=== PATIENT | male | born 1995 | race Two or more races ===

== ENCOUNTER 2020-02-10 05:50 | Emergency (ER) | payer SELFPAY ==
[~2020-02-10] VITALS: Ht 170.2 cm; Wt 65.8 kg
--- NOTE | 2020-02-10 05:50 | NUR ---
ED Nurse Note: pt MARINA DUNNE [phone] from a [employer] c/o [employer]. EMS report that pt called them from a payphone, pt has had the [employer] for 3 days, also states he was nauseated. when asked where in his head the px is located, pt holds up 3 fingers, cannot locate where pain is in his head. pt repeatedly steps out of room asking for various things such as a "sleep injection" and asking if he can leave yet. he follows commands but does not seem to answer questions coherently at this time
[2020-02-10 05:53] VITALS: BP 132/98
--- NOTE | 2020-02-10 06:08 | Emergency Room Report ---
History of Present Illness General Chief Complaint: Headache Source: Patient Present Illness HPI Disclaimer: Please note that this report is being documented using DRAGON technology. This can lead to erroneous entry secondary to incorrect interpretation by the dictating instrument. HPI: 24-year-old male presents for evaluation of headache. Patient complains of 2 days throbbing headache and reports a history of migraines but does not take any medications for migraines. He states he has been drinking champagne over the past few days. Reports a history of methamphetamine use but denies any recently. Denies vomiting, vision changes, loss of consciousness, head trauma. 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 EOMI. PERRLA. Noninjected sclera. Dry mucous membranes Cardiovascular: RRR. S1 and S2 normal. No murmur appreciated Resp: Normal work of breathing. Abdomen: Abdomen is soft, nondistended. Nontender MSK: Normal tone and bulk. Moving all extremities. No obvious deformity. Ambulating with steady gait Neuro: Awake and alert. Mentating appropriately. Medical Decision Making Diagnostic Impression: Primary Impression: Headache Additional Impression: Eloped from emergency department ER Course 24-year-old male presents for evaluation of headache. He reports recent alcohol use. Differential includes but not limited to generalized headache, dehydration, migraine, cluster headache, tension headache. He admits to recent alcohol use may be hangover or dehydration. Provide IV fluids and analgesics. Will obtain old work to screen for electrolyte, metabolic and infectious abnormalities. Will also send tox screen as well as blood alcohol level. 0700: Patient eloped from the emergency department prior to my reevaluation and discussing lab work. Labs have returned within normal limits but patient did not provide urine. Laboratory Tests Test 02/10/20 06:10 White Blood Count 9.3 K/UL (4.8-10.8) Red Blood Count 4.89 M/UL (4.70-6.10) Hemoglobin 14.8 G/DL (14.2-18.0) Hematocrit 45.7 % (42.0-52.0) Mean Corpuscular Volume 94 FL (80-99) Mean Corpuscular Hemoglobin 30.3 PG (27.0-31.0) Mean Corpuscular Hemoglobin Concent 32.4 G/DL (32.0-36.0) Red Cell Distribution Width 12.0 % (11.6-14.8) Platelet Count 266 K/UL (150-450) Mean Platelet Volume 8.3 FL (6.5-10.1) Neutrophils (%) (Auto) 62.1 % (45.0-75.0) Lymphocytes (%) (Auto) 20.8 % (20.0-45.0) Monocytes (%) (Auto) 11.5 % (1.0-10.0) H Eosinophils (%) (Auto) 4.0 % (0.0-3.0) H Basophils (%) (Auto) 1.6 % (0.0-2.0) Sodium Level 138 MMOL/L (136-145) Potassium Level 3.9 MMOL/L (3.5-5.1) Chloride Level 103 MMOL/L (98-107) Carbon Dioxide Level 27 MMOL/L (21-32) Anion Gap 8 mmol/L (5-15) Blood Urea Nitrogen 15 mg/dL (7-18) Creatinine 1.2 MG/DL (0.55-1.30) Estimated Glomerular Filtration Rate > 60 mL/min (>60) Glucose Level 102 MG/DL (74-106) Calcium Level 8.5 MG/DL (8.5-10.1) Total Bilirubin 0.2 MG/DL (0.2-1.0) Aspartate Amino Transferase (AST) 19 U/L (15-37) Alanine Aminotransferase (ALT) 25 U/L (12-78) Alkaline Phosphatase 80 U/L (46-116) Total Protein 7.9 G/DL (6.4-8.2) Albumin 4.0 G/DL (3.4-5.0) Globulin 3.9 g/dL Albumin/Globulin Ratio 1.0 (1.0-2.7) Salicylates Level 3.8 ug/mL (2.8-20) Acetaminophen Level < 2 MCG/ML (10-30) L Serum Alcohol < 3 mg/dL Last Vital Signs Date Time Temp Pulse Resp B/P (MAP) Pulse Ox O2 Delivery O2 Flow Rate FiO2 02/10/20 05:53 98.6 73 15 132/98 98 Room Air Disposition: ELOPED Condition: Stable Franky Peoples MD Feb 10, 2020 06:08
[2020-02-10] MEDS ORDERED: Acetaminophen 500mg (ES) tab ORAL ONE (06:15)
[2020-02-10 06:30] VITALS: BP 132/98
--- NOTE | 2020-02-10 06:30 | NUR ---
ED Nurse Note: pt stated at this time that he would like to leave. pt was informed that he would be sigining out AMA, risks of leaving before fully being treated were explained to pt. he verablized understanding and still wishes to leave. pt signed AMA paperwork, IV line was removed without complications and he left with all of his belongings
[2020-02-10 06:33] LABS: ANION GAP 8 mmol/L (5-15); BLOOD UREA NITROGEN 15 mg/dL (7-18); CALCIUM 8.5 MG/DL (8.5-10.1); CARBON DIOXIDE 27 MMOL/L (21-32); CHLORIDE 103 MMOL/L (98-107); CREATININE 1.2 MG/DL (0.55-1.30); POTASSIUM 3.9 MMOL/L (3.5-5.1); SODIUM 138 MMOL/L (136-145)
[2020-02-10 06:34] LABS: BASOPHILS % (AUTO) 1.6 % (0.0-2.0); HEMATOCRIT 45.7 % (42.0-52.0); HEMOGLOBIN 14.8 G/DL (14.2-18.0); LYMPHOCYTES % (AUTO) 20.8 % (20.0-45.0); MEAN CORPUSCULAR VOLUME 94 FL (80-99); MONOCYTES % (AUTO) 11.5 % (1.0-10.0); NEUTROPHILS % (AUTO) 62.1 % (45.0-75.0); PLATELET COUNT 266 K/UL (150-450); RED BLOOD COUNT 4.89 M/UL (4.70-6.10); WHITE BLOOD COUNT 9.3 K/UL (4.8-10.8)
[2020-02-10 06:38] LABS: ALANINE AMINOTRANSFERASE 25 U/L (12-78); ALKALINE PHOSPHATASE 80 U/L (46-116); ASPARTATE AMINO TRANSFERASE 19 U/L (15-37); BILIRUBIN,TOTAL 0.2 MG/DL (0.2-1.0)
== END 2020-02-10 07:15 | disposition left against medical advice (07) ==
LOC: EDBD 05:50 → EMR 06:09
DX: R51 Headache (principal)
CPT/HCPCS: 36415; 80053; 85025; 96360; 99284; G0480; J7030